=== PATIENT | male | born 1960 | race Caucasian/White ===

== ENCOUNTER 2018-09-06 08:27 | Day surgery (SDC) | payer MEDICARE, MEDICAID ==
[2018-09-06] VITALS (8 sets, daily range): BP systolic 116–146; BP diastolic 66–104
[~2018-09-06] VITALS: Ht 175.3 cm; Wt 105.6 kg
[~2018-09-06 08:27] MED LIST: AMLO2.5T2 PO; ASPI81TA61 PO; BUPR150T8 PO; CARV25TA2 PO; CHOL200012 PO; DOCU-20 PO; DOL10T PO; DULO-31 PO; FURO40TA4 PO; METH-603 PO; NITR0.4T51 SL; OXYC15TA88 PO; POTA10TA15 PO; TICA90TA PO; VAL5T PO
[2018-09-06] MEDS ORDERED: diphenhydrAMINE 25mg capsule PO PRN (09:10)
[2018-09-06] MEDS ORDERED: sod bicarbonate 150mEq in D5W 1,150 ML IV ONE (09:10)
[2018-09-06] MEDS ORDERED: PANT-47 PO (09:48)
[2018-09-06] MEDS ORDERED: POTA8TAB8 PO (09:48)
[2018-09-06] MEDS ORDERED: LISI-600 PO (09:48)
[2018-09-06] MEDS ORDERED: APIX2.5T PO (09:48)
[2018-09-06] MEDS ORDERED: ATOR40TA PO (09:48)
[2018-09-06] MEDS ORDERED: ALBU18HF2 INH (09:48)
[2018-09-06 10:01] LABS: ALBUMIN 2.6 G/DL (3.4-5.0); ANION GAP 10 (8-16); BLOOD UREA NITROGEN 16 MG/DL (7-18); BUN/CREATININE RATIO 13.4 (5.4-32.0); CALCIUM 8.1 MG/DL (8.5-10.1); CHLORIDE 105 MMOL/L (99-107); CREATININE 1.19 MG/DL (0.60-1.10); GLUCOSE 81 MG/DL (70-104); MAGNESIUM 1.7 MG/DL (1.5-2.4); POTASSIUM 3.5 MMOL/L (3.5-5.1); SODIUM 143 MMOL/L (135-145); eGFR 62 ML/MIN
[2018-09-06 10:06] LABS: BASOPHILS % (AUTO) 0.5 % (0-1); EOSINOPHILS # (AUTO) 0.3 X10'3 (0-0.9); EOSINOPHILS % (AUTO) 3.8 % (0-6); HEMATOCRIT 34.3 % (42.0-52.0); HEMOGLOBIN 11.7 g/dl (14.0-17.9); LYMPHOCYTES # (AUTO) 1.7 X10'3 (1.1-4.8); LYMPHOCYTES % (AUTO) 23.4 % (21-51); MEAN CORPUSCULAR HEMOGLOBIN 32.9 PG (27.0-31.0); MEAN CORPUSCULAR VOLUME 96.6 FL (78-98); MEAN PLATELET VOLUME 10.5 FL (7.4-10.4); MONOCYTES # (AUTO) 0.8 X10'3 (0-0.9); MONOCYTES % (AUTO) 11.2 % (2-12); NEUTROPHILS # (AUTO) 4.3 X10'3 (1.8-7.7); NEUTROPHILS % (AUTO) 61.1 % (42-75); PLATELET COUNT 159 X10'3 (140-440); RED BLOOD COUNT 3.55 X10'6 (4.70-6.10); RED CELL DISTRIBUTION WIDTH 12.9 % (11.5-14.5); WHITE BLOOD COUNT 7.1 X10'3 (4.5-11.0)
[2018-09-06 10:15] LABS: INR 1.1 INR; PROTHROMBIN TIME 10.7 SECONDS (9.0-12.0)
[2018-09-06] MEDS ORDERED: fentaNYL/PF 50MCG/1 ML 2ML syringe ONE (11:03)
[2018-09-06] MEDS ORDERED: proCHLORperazine 10 MG/2 ml inj ONE (11:03)
[2018-09-06] MEDS ORDERED: LIDOcaine 1% (10mg/ml)w/preservative injection 20ml MDV ONE (11:03)
[2018-09-06] MEDS ORDERED: midazolam 2 mg/2 ml injection ONE (11:03)
[2018-09-06] MEDS ORDERED: iohexol 350MG/ML 100ml bottle IV ONE (11:04)
[2018-09-06] MEDS ORDERED: iohexol 350 MG/ML 50ML vial IV ONE (11:04)
[2018-09-06] MEDS ORDERED: nitroGLYCERIN 0.4mg SUBLingual tab SL PRN (12:25)
[2018-09-06] MEDS ORDERED: non-formulary drug (Albuterol Sulfate (Ventolin Hfa) 2 PUFFS) INH SCH (12:25)
[2018-09-06] MEDS ORDERED: diazepam 5mg tablet PO PRN (12:25)
[2018-09-06] MEDS ORDERED: oxyCODONE IR 5mg (immed. release) tablet PO SCH (13:00)
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
--- NOTE | 2018-09-06 15:06 | NUR ---
ISAMAR FROM [employer] CAME IN AND TALKED TO PATIENT AND FAMILY MEMBERS THAT WERE CONCERNED ABOUT HIS RETURN HOME. ISAMAR STATED HE IS FINE TO BE DISCHARGED AT THIS TIME, INFORMATION WAS GIVEN TO FAMILY.
[2018-09-06] MEDS ORDERED: methadone 10mg tablet PO SCH (20:00)
[2018-09-06] MEDS ORDERED: non-formulary drug (Carvedilol 1 TABLET) PO SCH (20:00)
[2018-09-06] MEDS ORDERED: apixaban 2.5mg tablet PO SCH (20:00)
[2018-09-06] MEDS ORDERED: docusate sod 100mg capsule PO SCH (21:00)
[2018-09-07] MEDS ORDERED: furosemide 40mg tablet PO SCH (08:00)
[2018-09-07] MEDS ORDERED: CHOLECALCIFEROL 2000 UNIT PO SCH (08:00)
[2018-09-07] MEDS ORDERED: lisinopril 20mg tablet PO SCH (08:00)
[2018-09-07] MEDS ORDERED: buPROPion SR 150mg tablet PO SCH (08:00)
[2018-09-07] MEDS ORDERED: duloxetine 30mg CAPSULE.DR PO SCH (08:00)
[2018-09-07] MEDS ORDERED: non-formulary drug (Atorvastatin Calcium* (Lipitor*) 1 TAB) PO SCH (08:00)
[2018-09-07] MEDS ORDERED: pantoprazole 40mg Tablet.DR PO SCH (08:00)
[2018-09-07] MEDS ORDERED: potassium chloride 8mEq ER tablet PO SCH (08:00)
== END 2018-09-06 15:30 | disposition home or self-care (01) ==
LOC: SSTAY O 08:27
PROVIDERS: ATTEND Internal Medicine Cardiovascular Disease
DX: I25.119 Atherosclerotic heart disease of native coronary artery with unspecified angina pectoris (principal); E78.5 Hyperlipidemia, unspecified; I11.0 Hypertensive heart disease with heart failure; I50.9 Heart failure, unspecified; G47.30 Sleep apnea, unspecified; F41.9 Anxiety disorder, unspecified; F32.9 Major depressive disorder, single episode, unspecified; F03.90 Unspecified dementia, unspecified severity, without behavioral disturbance, psychotic disturbance, mood disturbance, and anxiety; Z86.73 Personal history of transient ischemic attack (TIA), and cerebral infarction without residual deficits; Z87.891 Personal history of nicotine dependence; Z79.899 Other long term (current) drug therapy; Z98.890 Other specified postprocedural states
CPT/HCPCS: 36415; 80048; 83735; 85025; 85610; 93005; 93458; A6257; C1760; J0780; J1644; J2001; J2250; J3010; Q0163; Q9967; 99152; A4620; C1769; C1894